=== PATIENT | female | born 1960 | race Two or more races ===

== ENCOUNTER → 2021-07-06 07:43 | Outpatient (CLI) | payer OTHER | END | disposition home or self-care (01) | LOC: LAB 07:43 | PROVIDERS: ATTEND Obstetrics & Gynecology | DX: I10 Essential (primary) hypertension (principal); D68.8 Other specified coagulation defects; D64.89 Other specified anemias; N39.0 Urinary tract infection, site not specified; Z01.810 Encounter for preprocedural cardiovascular examination; Z01.811 Encounter for preprocedural respiratory examination ==

== ENCOUNTER 2021-07-17 10:15 | Inpatient (IN) | payer OTHER ==
[~2021-07-17] VITALS: Ht 160 cm; Wt 94.8 kg
[2021-07-17] MEDS ORDERED: LEXAPRO5 MG (12:39)
[2021-07-17] MEDS ORDERED: ATIVAN0.5 M1 (12:39)
[2021-07-17] MEDS ORDERED: SYNTHROID100 MCG (12:39)
[2021-07-17] MEDS ORDERED: ATACAND32 MG (12:39)
== END 2021-07-26 16:14 | disposition home or self-care (01) | DRG 742 ==
LOC: ADM 10:15 → EDSTATUS 10:15 → SURH 07-21 07:00 → OB/GYN 07-21 08:40 → O/R 07-21 08:40 → SURH 07-21 10:15 → OB/GYN 07-21 20:29
PROVIDERS: ADMIT Obstetrics & Gynecology; ATTEND Obstetrics & Gynecology
PROC: 0UT74ZZ Resection of Bilateral Fallopian Tubes, Percutaneous Endoscopic Approach (ICD-10-PCS; 2021-07-21)
PROC: 0TJB8ZZ Inspection of Bladder, Via Natural or Artificial Opening Endoscopic (ICD-10-PCS; 2021-07-21)
PROC: 0UT94ZZ Resection of Uterus, Percutaneous Endoscopic Approach (ICD-10-PCS; principal; 2021-07-21 07:00)
PROC: 30233N1 Transfusion of Nonautologous Red Blood Cells into Peripheral Vein, Percutaneous Approach (ICD-10-PCS; 2021-07-22)
PROC: BW21ZZZ Computerized Tomography (CT Scan) of Abdomen and Pelvis (ICD-10-PCS; 2021-07-23)
DX: N95.0 Postmenopausal bleeding (principal); K66.1 Hemoperitoneum; D62 Acute posthemorrhagic anemia; N17.8 Other acute kidney failure; E86.1 Hypovolemia; N84.0 Polyp of corpus uteri; N73.6 Female pelvic peritoneal adhesions (postinfective); N32.89 Other specified disorders of bladder; N83.8 Other noninflammatory disorders of ovary, fallopian tube and broad ligament; N70.11 Chronic salpingitis; N83.319 Acquired atrophy of ovary, unspecified side; I10 Essential (primary) hypertension

== ENCOUNTER 2021-08-20 17:01 | Inpatient (IN) | payer OTHER ==
[~2021-08-20] VITALS: Ht 160 cm; Wt 92.1 kg
[~2021-08-20 17:01] MED LIST: ATACAND32 MG; ATIVAN0.5 M1; LEXAPRO5 MG; SYNTHROID100 MCG
== END 2021-08-22 08:04 | disposition home or self-care (01) | DRG 761 ==
LOC: O/R 17:01 → MEDJ 17:01 → OB/GYN 17:08 → MEDJ 23:26
PROVIDERS: ADMIT Obstetrics & Gynecology; ATTEND Obstetrics & Gynecology
PROC: BW21ZZZ Computerized Tomography (CT Scan) of Abdomen and Pelvis (ICD-10-PCS; principal; 2021-08-20)
PROC: BW25ZZZ Computerized Tomography (CT Scan) of Chest, Abdomen and Pelvis (ICD-10-PCS; 2021-08-20)
PROC: 8E0ZXY6 Isolation (ICD-10-PCS; 2021-08-20)
DX: N93.8 Other specified abnormal uterine and vaginal bleeding (principal); D50.0 Iron deficiency anemia secondary to blood loss (chronic); Z20.822 Contact with and (suspected) exposure to COVID-19; E03.8 Other specified hypothyroidism